=== PATIENT | female | born 1965 | race Caucasian/White ===

== ENCOUNTER → 2016-05-24 | Day surgery (SDC) | payer BC ==
[2016-05-18 13:34] VITALS: Ht 160 cm; Wt 58.2 kg
[~2016-05-24] VITALS: Ht 160 cm; Wt 58.2 kg
[~2016-05-24] MED LIST: FEXO1TAB46 PO; LIDOCAINE HCL 2% 2 ML VIAL (20MG/ML) ONE; MIDAZOLAM HCL 1 MG/ML 2ML VIAL ONE; MULTTAB58 PO; ONDANSETRON INJ 2 MG/ML 2 ML VIAL ONE; PROPOFOL IV EMULSION 10 MG/ML 20 ML VIAL IV ONE; RANI150T3 PO; SODIUM CHLORIDE 0.9% 500ML 500 ML IV ONE
[2016-05-24 14:29] VITALS: TEMP 36.5
--- NOTE | 2016-05-24 15:05 | Endo History and Physical ---
History & Physical Date of Service: May 24, 2016. Chief Complaint: Screening, Family history of colon polyps Referring Physician: Adarsh Ma History of Present Illness 51 yo CF who presents for colonoscopy secondary to family history of colon polyps. Past Surgical History Hx Cardiac Surgery: No Hx Internal Defibrillator: No Hx Pacemaker: No Hx Abdominal Surgery: Yes (TUBAL LIGATION, EZIO) Hx of Implantable Prosthesis: No Hx Post-Op Nausea and Vomiting: Yes Hx Cancer Surgery: No Hx Thoracic Surgery: No Hx Orthopedic: No Hx Urinary Tract Surgery: No Family History Polyp Social History Smoking Status: Never Smoker Hx Substance Use: No Hx Alcohol Use: No Allergies Coded Allergies: Nickel (Verified Allergy, Unknown, RASH, 05/18/16) Sulfa Drugs (Verified Allergy, Unknown, BODY WIDE RASH, 05/18/16) Meperidine (Verified Adverse Reaction, Unknown, nausea, 05/18/16) Current Medications Reported Home Medications Medications Dose Route/Sig Max Daily Dose Days Date Category Zantac (Ranitidine HCl) 150 Mg Tab 150 Mg PO QAM 04/21/14 Reported Multivitamin (Multiple Vitamin) 1 Tab Tab 1 Tab PO QAM 02/07/12 Reported Soledad (Fexofenadine Hcl) 180 Mg Tab 180 Mg PO QAM 02/07/12 Reported Vital Signs Weight (Kilograms): 58.18 Height (Feet): 5 Height (Inches): 3 Date Time Temp Pulse Resp B/P Pulse Ox O2 Delivery O2 Flow Rate FiO2 05/24/16 14:29 36.5 74 20 128/68 97 Room Air Physical Exam General Appearance: WD/WN, no apparent distress Respiratory/Chest: Auscultation: breath sounds normal Cardiovascular: Heart Auscultation: RRR Abdomen: Bowel Sounds: normal Inspection & Palpation: soft, non-distended, no tenderness, guarding & rebound Assessment and Plan Assessment: 51 yo CF who presents for colonoscopy secondary to family history of colon polyps. Plan: Proceed with colonoscopy.
--- NOTE | 2016-05-24 15:24 | Discharge Instructions ---
Endoscopy Patient Instructions Date / Procedure(s) Performed May 24, 2016. Colonoscopy Allergy Information Coded Allergies: Nickel (Verified Allergy, Unknown, RASH, 05/18/16) Sulfa Drugs (Verified Allergy, Unknown, BODY WIDE RASH, 05/18/16) Meperidine (Verified Adverse Reaction, Unknown, nausea, 05/18/16) Discharge Date / Findings May 24, 2016. Colon polyps Diverticulosis Internal hemorrhoids Medication Instructions OK to resume all medications today as prescribed. Reported Home Medications Medications Dose Route/Sig Max Daily Dose Days Date Category Zantac (Ranitidine HCl) 150 Mg Tab 150 Mg PO QAM 04/21/14 Reported Multivitamin (Multiple Vitamin) 1 Tab Tab 1 Tab PO QAM 02/07/12 Reported Soledad (Fexofenadine Hcl) 180 Mg Tab 180 Mg PO QAM 02/07/12 Reported Provider Instructions Activity Restrictions - No exercising or heavy lifting for 24 hours. - Do not drink alcohol the day of the procedure. - Do not drive a car or operate machinery until the day after the procedure. - Do not make any important decisions or sign important papers in 24 hours after the procedure. Following Day: - Return to full activity which may include returning to work/school. Diet Start your diet with liquids and light foods (jello, soup, juice, toast). Then eat your usual diet if not nauseated. Treatment For Common After Affects For mild abdominal pain, bloating, or excessive gas: - Rest - Eat lightly - Lie on right side Follow-Up Information Follow-up with Adarsh Ma as scheduled Anesthesia Information What You Should Know You have had a procedure that required some medicine to reduce anxiety and discomfort. This treatment is called moderate sedation. After receiving the treatment, you may be sleepy, but you will be able to breathe on your own. The effects of the treatment may last for several hours. Follow these instructions along with Activity/Diet recommendations noted above: * Do NOT do anything where dizziness or clumsiness would be dangerous. * Rest quietly at home today, then you can be up and about tomorrow. * Have a responsible person stay with you the rest of today. * You may have had an I.V. today. If so, you may take the dressing off later today. Recommendations Call your doctor if: * Trouble breathing * Continuous vomiting for more than 24 hours * Temperature above 101 degrees * Severe abdominal pain or bloating * Pain not relieved by pain medicine ordered * There is increased drainage or redness from any incision * A large amount of rectal bleeding greater than 2-3 tablespoons. (If you had a polyp/s removed or have hemorrhoids, a small amount of blood - from the rectum is to be expected.) * You have any unanswered questions or concerns. IN THE EVENT OF A SERIOUS EMERGENCY, GO TO THE NEAREST EMERGENCY ROOM Your discharge instructions were prepared by provider Wilber Tompkins. Patient Instructions Signature Page Rebecca Payne Patient (or Guardian) Signature/Date: I have read and understand the instructions given to me by my caregivers. Caregiver/RN/Doctor Signature/Date: The above-named patient and/or guardian has received patient instructions on this date. + Original Patient Signature Page (only) stays with chart. Please make copy for patient.
--- NOTE | 2016-05-24 15:49 | Anesthesiology Progress Note ---
Anesthesia Post Op Note Date & Time May 24, 2016 at 15:49 Vital Signs Pain Intensity: 0 Vital Signs Past 12 Hours Date Time Temp Pulse Resp B/P Pulse Ox O2 Delivery O2 Flow Rate FiO2 05/24/16 15:30 88 20 106/57 98 Room Air 05/24/16 14:29 36.5 74 20 128/68 97 Room Air Notes Mental Status: alert / awake / arousable, participated in evaluation Pt Amnestic to Procedure: Yes Nausea / Vomiting: adequately controlled Pain: adequately controlled Airway Patency, RR, SpO2: stable & adequate BP & HR: stable & adequate Hydration State: stable & adequate Anesthetic Complications: no major complications apparent
[2016-05-24 16:01] VITALS: BP 118/72; PULSE 71; O2SAT 100
--- NOTE | 2016-05-25 00:46 | GI REPORT ---
Procedure Date: 05/24/2016 2:58 PM Procedure: Colonoscopy Indications: Family history of colonic polyps in a first-degree relative Medicines: Monitored Anesthesia Care Complications: No immediate complications. Estimated Blood Loss: Estimated blood loss: none. Procedure: Pre-Anesthesia Assessment: - Prior to the procedure, a History and Physical was performed, and patient medications and allergies were reviewed. The patient's tolerance of previous anesthesia was also reviewed. The risks and benefits of the procedure and the sedation options and risks were discussed with the patient. All questions were answered, and informed consent was obtained. Prior Anticoagulants: The patient has taken no previous anticoagulant or antiplatelet agents. ASA Grade Assessment: II - A patient with mild systemic disease. After reviewing the risks and benefits, the patient was deemed in satisfactory condition to undergo the procedure. After I obtained informed consent, the scope was passed under direct vision. Throughout the procedure, the patient's blood pressure, pulse, and oxygen saturations were monitored continuously. The Scope was introduced through the anus and advanced to the terminal ileum. The colonoscopy was performed without difficulty. The patient tolerated the procedure well. The quality of the bowel preparation was good. The terminal ileum, ileocecal valve, appendiceal orifice, and rectum were photographed. Findings: Two sessile polyps were found in the ascending colon. The polyps were 5 to 8 mm in size. These polyps were removed with a hot snare. Resection and retrieval were complete. Multiple small-mouthed diverticula were found in the sigmoid colon. Non-bleeding internal hemorrhoids were found during retroflexion. The hemorrhoids were small. Impression: - Two 5 to 8 mm polyps in the ascending colon, removed with a hot snare. Resected and retrieved. - Diverticulosis in the sigmoid colon. - Non-bleeding internal hemorrhoids. Recommendation: - Resume previous diet. - Continue present medications. - Repeat colonoscopy for surveillance based on pathology results. - Return to primary care physician as previously scheduled. Wilber Tompkins, DO 05/24/2016 3:31:14 PM This report has been signed electronically. Note Initiated On: 05/24/2016 2:58 PM I attest to the content of the Intraoperative Record and orders documented therein, exceptions below
== END | disposition home or self-care (01) ==
LOC: C.GI 13:59
PROVIDERS: ATTEND Internal Medicine
DX: Z12.11 Encounter for screening for malignant neoplasm of colon (principal); Z80.0 Family history of malignant neoplasm of digestive organs; D12.2 Benign neoplasm of ascending colon; K57.30 Diverticulosis of large intestine without perforation or abscess without bleeding; K64.8 Other hemorrhoids; Z98.51 Tubal ligation status; Z88.2 Allergy status to sulfonamides

== ENCOUNTER → 2016-08-27 | Outpatient (CLI) | payer BC ==
[~2016-08-27] MED LIST changes: -LIDOCAINE HCL 2% 2 ML VIAL (20MG/ML) ONE; -MIDAZOLAM HCL 1 MG/ML 2ML VIAL ONE; -ONDANSETRON INJ 2 MG/ML 2 ML VIAL ONE; -PROPOFOL IV EMULSION 10 MG/ML 20 ML VIAL IV ONE; -SODIUM CHLORIDE 0.9% 500ML 500 ML IV ONE
== END | disposition home or self-care (01) ==
LOC: C.PAPS 10:11
PROVIDERS: ATTEND Obstetrics & Gynecology
DX: Z01.419 Encounter for gynecological examination (general) (routine) without abnormal findings (principal)

== ENCOUNTER → 2016-10-02 | Outpatient (CLI) | payer BC ==
--- NOTE | 2016-10-03 07:39 | MAMMOGRAPHY REPORT ---
BILATERAL DIGITAL SCREENING MAMMOGRAM TOMOSYNTHESIS WITH CAD: 10/02/2016 CLINICAL HISTORY: Routine screening. TECHNIQUE: Breast tomosynthesis in addition to standard 2D mammography was performed. Current study was also evaluated with a Computer Aided Detection (CAD) system. COMPARISON: Comparison is made to exams dated: 10/18/2015 mammogram, 10/13/2014 mammogram, 10/12/2013 m ammogram, 10/09/2012 mammogram, 10/07/2012 mammogram, and 10/01/2011 mammogram - [facility] nter. BREAST COMPOSITION: The tissue of both breasts is heterogeneously dense, which may obscure small mas ses. FINDINGS: The parenchymal pattern is similar to prior exams. There are a few scattered and loosely grouped punctate benign-appearing microcalcifications in the breasts. No developing mass, architectu ral distortion or cluster of suspicious microcalcifications is seen. IMPRESSION: ACR BI-RADS CATEGORY 2: BENIGN There is no mammographic evidence of malignancy. A 1 year screening mammogram is recommended. The pa tient will receive written notification of the results. Approximately 10% of breast cancers are not detected with mammography. A negative mammographic report should not delay biopsy if a clinically suggestive mass is present. Reyna Owen M.D. ay/:10/02/2016 16:06:26 Wrapper Layer: Mirtha SANCHEZ(Trey)(M), [facility] letter sent: Normal 1/2 BI-RADS Code: ACR BI-RADS Category 2: Benign
== END | disposition home or self-care (01) ==
LOC: C.MAMM 14:55
PROVIDERS: ATTEND Obstetrics & Gynecology
DX: Z12.31 Encounter for screening mammogram for malignant neoplasm of breast (principal)

== ENCOUNTER → 2016-11-30 | Outpatient (CLI) | payer BC ==
[2016-11-30 12:15] LABS: BASO % 0.5 %; BASO ABS # 0.03 K/uL (0-0.2); COMPLETE YES; EOS % 2.6 %; HEMATOCRIT 40.4 % (37-47); IG% 0.5 %; MEAN CELL VOLUME 88.2 fL (80-100); MEAN CORPUSCULAR HEMOGLOBIN 29.5 pg (25-34); MEAN CORPUSCULAR HGB CONC 33.4 g/dl (32-36); MEAN PLATELET VOLUME 9.7 fL (7.4-10.4); MONO % 9.3 %; NEUT % 61.1 %; PLATELET COUNT 229 K/uL (130-400); RED BLOOD COUNT 4.58 M/uL (4.2-5.4); WHITE BLOOD COUNT 6.55 K/uL (4.8-10.8)
[2016-11-30 12:58] LABS: BLOOD UREA NITROGEN 14 mg/dl (7-18); BUN/CREATININE RATIO 19.1 (10-20); CALCIUM 9.5 mg/dl (8.5-10.1); CARBON DIOXIDE 30 mmol/L (21-32); CHLORIDE 105 mmol/L (98-107); CHOLESTEROL 192 mg/dl (0-200); CREATININE 0.74 mg/dl (0.60-1.20); GLUCOSE 88 mg/dl (70-99); POTASSIUM 4.5 mmol/L (3.5-5.1); SODIUM 141 mmol/L (136-145); TRIGLYCERIDES 84 mg/dl (0-150); VERY LOW DENSITY LIPOPROT CALC 17 mg/dl
[2016-11-30 13:01] LABS: CHOLESTEROL/HDL RATIO 3.3; HDL CHOLESTEROL 58 mg/dl; LDL CHOLESTEROL CALCULATED 117 mg/dl
== END | disposition home or self-care (01) ==
LOC: C.LABBFT 08:15
PROVIDERS: ATTEND Internal Medicine
DX: E78.5 Hyperlipidemia, unspecified (principal); K21.9 Gastro-esophageal reflux disease without esophagitis

== ENCOUNTER 2019-04-10 18:08 | Observation (INO) ==
[2019-04-10] MEDS ORDERED: ASPIRIN CHEW 324 MG PO STA (18:27)
[2019-04-10 18:44] LABS: Basophils # (auto) 0.03 K/uL (0-0.2); Basophils % (auto) 0.4 %; Eosinophils # (auto) 0.17 K/uL (0-0.5); Eosinophils % (auto) 2.4 %; Hematocrit (blood only) 39.3 % (37-47); Hemoglobin 13.1 g/dL (12.0-16.0); Immature Granulocytes # (auto) 0.01 K/uL (0.00-0.02); Immature Granulocytes % (auto) 0.1 %; Lymphocytes # (auto) 1.99 K/uL (1.2-3.4); Lymphocytes % (auto) 28.4 %; Mean Corpuscular Hemoglobin 28.9 pg (25-34); Mean Corpuscular Hgb Conc 33.3 g/dL (32-36); Mean Corpuscular Volume 86.8 fL (80-100); Mean Platelet Volume 9.3 fL (7.4-10.4); Monocytes # (auto) 0.54 K/uL (0.11-0.59); Monocytes % (auto) 7.7 %; Neutrophils # (auto) 4.26 K/uL (1.4-6.5); Platelet Count 215 K/uL (130-400); RDW Coefficient of Variation 13.3 % (11.5-14.5); RDW Standard Deviation 42.3 fL (36.4-46.3); Red Blood Count 4.53 M/uL (4.2-5.4)
[2019-04-10 19:00] LABS: D Dimer < 190 ug/L FEU (0-500); Partial Thromboplastin Time 26.8 Seconds (21.0-31.0); Prothrombin Time 10.1 Seconds (9.0-12.0)
[2019-04-10 19:03] LABS: Alanine Aminotransferase 33 U/L (12-78); Albumin Level 4.1 gm/dl (3.4-5.0); Aspartate Aminotransferase 16 U/L (15-37); BUN Creatinine Ratio 20.1 (10-20); Blood Urea Nitrogen 14 mg/dl (7-18); Calcium 8.9 mg/dl (8.5-10.1); Carbon Dioxide 28 mmol/L (21-32); Chloride 108 mmol/L (98-107); Creatinine Clr Calc Pharmacy 76.2 ml/min; Est GFR (African American) 113.6; Glucose 93 mg/dl (70-99); Lipase 236 U/L (73-393); Potassium 3.8 mmol/L (3.5-5.1); Sodium 139 mmol/L (136-145)
[2019-04-10 19:08] LABS: Albumin Globulin Ratio 1.2 (0.9-2); Alkaline Phosphatase 86 U/L (45-117); Bilirubin,Total 0.3 mg/dl (0.2-1); Globulin 3.3 gm/dl (2.5-4.0); Total Protein 7.4 gm/dl (6.4-8.2); Troponin I < 0.015 ng/ml (0-0.045)
--- NOTE | 2019-04-10 19:15 | XRay Report ---
XR chest 1V portable CLINICAL HISTORY: 53 years-old Female presenting with Chest Pain. TECHNIQUE: Portable upright AP view of the chest was obtained. COMPARISON: None. FINDINGS: Cardiomediastinal silhouette normal. No focal opacity. No large effusion or pneumothorax. Osseous str uctures normal. Upper abdomen normal. IMPRESSION: 1. No acute cardiopulmonary disease. ACT 112: Negative or not required by law. Electronically signed by: Tristen Paez M.D. 04/10/2019 7:14 PM
--- NOTE | 2019-04-10 20:02 | Emergency Department Note ---
Entered by Nohemy Fonseca acting as a scribe for David Ruiz DO History of Present Illness General Chief complaint: Chest Pain Stated complaint: CHEST PAIN, WEEKNESS IN LIMBS Time Seen by Provider: 04/10/19 18:20 Source: patient History of Present Illness Provider complaint: chest pain Onset (ago): hour(s) 10 Location: chest and left Radiation: non-radiation Pain Consistency: + intermittent Maximum Pain Intensity: 5 Quality: + stabbing and + sharp Exacerbated By: + movement Associated symptoms: + shortness of breath and + other (-leg swelling, +palpitation) The patient is a 53 year old female who presents to the Emergency Room with complaints of intermittent chest pain for the past 10 hours. The patient notes that the pain is located on her left side and is a sharp, stabbing pain. The patient notes that moving worsens her pain. She notes that she has mild shortness of breath. She denies any leg swelling. She mentions that that on , she experienced palpitations which lasted all day. She notes that she has occasional chronic palpitations which she ignores. She denies any alcohol or tobacco use. Home Medications Home Medications Medication Instructions Recorded Confirmed Type fexofenadine 180 mg PO DAILY 04/10/19 04/10/19 History multivitamin 1 tab PO DAILY 04/10/19 04/10/19 History Allergies Allergy/AdvReac Type Severity Reaction Status Date / Time nickel Allergy Unknown Rash Verified 04/10/19 18:57 Sulfa (Sulfonamide Allergy Unknown BODY WIDE Verified 04/10/19 18:57 Antibiotics) RASH meperidine AdvReac Unknown Nausea Verified 04/10/19 18:57 Past Med/Surg History Medical History No significant past medical history Social History Feels Safe at Home: Yes Smoking Status: Never smoker Review of Systems See HPI for pertinent positives & negatives. and A total of 10 systems reviewed and were otherwise negative Physical Exam Vital Signs Vital Signs - 24 hr 04/10/19 18:09 04/10/19 18:29 04/10/19 18:30 Temperature 37 C Temperature Source Oral Pulse Rate 80 70 73 Respiratory Rate 18 21 20 Blood Pressure 167/78 H Blood Pressure Mean 107 Pulse Oximetry 99 Oxygen Delivery Method Room Air Room Air Room Air Sepsis Recent Fever Within 48 Hours No Sepsis New/Unexplained Change in Mental Status No Sepsis Action Taken by Nursing No Action Required 04/10/19 18:39 04/10/19 18:40 04/10/19 18:50 Temperature Temperature Source Pulse Rate 75 75 Respiratory Rate 22 14 Blood Pressure Blood Pressure Mean Pulse Oximetry 97 97 Oxygen Delivery Method Room Air Room Air Room Air Sepsis Recent Fever Within 48 Hours Sepsis New/Unexplained Change in Mental Status Sepsis Action Taken by Nursing 04/10/19 19:00 04/10/19 19:10 04/10/19 19:20 Temperature Temperature Source Pulse Rate 69 65 72 Respiratory Rate 16 17 15 Blood Pressure Blood Pressure Mean Pulse Oximetry Oxygen Delivery Method Room Air Room Air Room Air Sepsis Recent Fever Within 48 Hours Sepsis New/Unexplained Change in Mental Status Sepsis Action Taken by Nursing 04/10/19 19:30 Temperature Temperature Source Pulse Rate 70 Respiratory Rate 22 Blood Pressure Blood Pressure Mean Pulse Oximetry Oxygen Delivery Method Room Air Sepsis Recent Fever Within 48 Hours Sepsis New/Unexplained Change in Mental Status Sepsis Action Taken by Nursing GENERAL: Patient is awake, alert, and in no acute distress.Patient is resting comfortably and showing no signs of anxiety EYES: The conjunctivae are clear. The pupils are round and reactive. EARS, NOSE, MOUTH AND THROAT: The nose is without any evidence of any deformity. Mucous membranes are moist.Tongue is midline NECK: The neck is nontender and supple. RESPIRATORY: Normal respiratory effort is noted. There is no evidence of wheezing rhonchi or rales to auscultation. CARDIOVASCULAR: Regular rate and rhythm noted. There no murmurs rubs or gallops normal S1 normal S2 GASTROINTESTINAL: The abdomen is soft. Bowel sounds are present in all quadrants. Abdomen is nontender. MUSCULOSKELETAL/EXTREMITIES: There is no evidence of gross deformity. Full range of motion is noted in the hips and shoulders. SKIN: There is no obvious evidence of any rash. There are no petechiae, pallor or cyanosis noted. NEUROLOGIC: Patient is awake alert and oriented x3. Strength is symmetric. Patellar reflexes are 2+ bilaterally. Course Course 1821: The patient was evaluated in room A12A, and a complete history and physical examination were performed. 1945: I reviewed the patient's case with Dr. Cervantes- [facility] Hospitalist. He will evaluate the patient for further management. Administered Medications Discontinued Medications Aspirin (Aspirin) 324 mg PO NOW STA Stop: 04/10/19 18:28 Last Admin: 04/10/19 18:39 Dose: 324 mg Documented by: [id number] Medical Decision Making Differential Diagnosis Differential diagnosis: Etiologies such as cardiac ischemia, aortic dissection, pulmonary embolism, pneumonia, pneumothorax, musculoskeletal, infections, pericarditis, myocarditis, esophageal rupture, gastrointestinal, as well as others were entertained. Medical Records Attestation: I reviewed the patient's medical records. Home Medications Current Medication List: was personally reviewed by me Laboratory Data Attestation: I reviewed the patient's lab results. Result diagrams: 04/10/19 18:32 04/10/19 18:32 Lab Results 04/10/19 04/10/19 04/10/19 Range/Units 18:32 18:32 18:32 WBC 7.00 (4.8-10.8) K/uL RBC 4.53 (4.2-5.4) M/uL Hgb 13.1 (12.0-16.0) g/dL Hct 39.3 (37-47) % MCV 86.8 (80-100) fL MCH 28.9 (25-34) pg MCHC 33.3 (32-36) g/dL RDW Std Deviation 42.3 (36.4-46.3) fL RDW Coeff of Jenna 13.3 (11.5-14.5) % Plt Count 215 (130-400) K/uL MPV 9.3 (7.4-10.4) fL Immature Gran % (Auto) 0.1 % Neut % (Auto) 61.0 % Lymph % (Auto) 28.4 % Owsley % (Auto) 7.7 % Eos % (Auto) 2.4 % Baso % (Auto) 0.4 % Immature Gran # (Auto) 0.01 (0.00-0.02) K/uL Neut # (Auto) 4.26 (1.4-6.5) K/uL Lymph # (Auto) 1.99 (1.2-3.4) K/uL Owsley # (Auto) 0.54 (0.11-0.59) K/uL Eos # (Auto) 0.17 (0-0.5) K/uL Baso # (Auto) 0.03 (0-0.2) K/uL PT 10.1 (9.0-12.0) Seconds INR 1.0 (0.9-1.1) APTT 26.8 (21.0-31.0) Seconds PTT Ratio 1.0 D-Dimer < 190 (0-500) ug/L FEU Sodium 139 (136-145) mmol/L Potassium 3.8 (3.5-5.1) mmol/L Chloride 108 H (98-107) mmol/L Carbon Dioxide 28 (21-32) mmol/L Anion Gap 3.0 (3-11) BUN 14 (7-18) mg/dl Creatinine 0.69 (0.6-1.2) mg/dl Est Cr Clr Drug Dosing 76.2 ml/min Est GFR ( Amer) 113.6 Est GFR (Non-Af Amer) 98.0 BUN/Creatinine Ratio 20.1 H (10-20) Glucose 93 (70-99) mg/dl Calcium 8.9 (8.5-10.1) mg/dl Total Bilirubin 0.3 (0.2-1) mg/dl AST 16 (15-37) U/L ALT 33 (12-78) U/L Alkaline Phosphatase 86 (45-117) U/L Troponin I < 0.015 (0-0.045) ng/ml Total Protein 7.4 (6.4-8.2) gm/dl Albumin 4.1 (3.4-5.0) gm/dl Globulin 3.3 (2.5-4.0) gm/dl Albumin/Globulin Ratio 1.2 (0.9-2) Lipase 236 (73-393) U/L Imaging Data Radiologist's Impression: Radiology results as stated below per my review and the radiologist's interpretation: XR chest 1V portable CLINICAL HISTORY: 53 years-old Female presenting with Chest Pain. TECHNIQUE: Portable upright AP view of the chest was obtained. COMPARISON: None. FINDINGS: Cardiomediastinal silhouette normal. No focal opacity. No large effusion or pneumothorax. Osseous structures normal. Upper abdomen normal. IMPRESSION: 1. No acute cardiopulmonary disease. ACT 112: Negative or not required by law. Electronically signed by: Tristen Paez M.D. 04/10/2019 7:14 PM ECG Data Attestation: I personally reviewed and interpreted this ECG as follows: Indication: + chest pain Rate (beats per minute): 73 Rhythm: + normal sinus ECG ST segments: + Nonspecific ST abnormalities (lateral ) ECG Findings: no PACs and no PVCs Comparison ECG Date: from (04/21/14) Change: no significant change Blood Pressure Blood Pressure Findings: Elevated blood pressure Blood Pressure Disposition: further management by hospitalist MDM Narrative The patient is a 53-year-old female who presented to the emergency department for an evaluation of chest discomfort. The patient describes intermittent episodes of sharp left-sided chest pain. The pain is not completely reproducible and she states it was sometimes worsened with ambulation but not necessarily exertion. I discussed the patient's laboratory and radiographic studies with her. I also discussed the limitations of the emergency department work-up for chest pain with her. Ultimately I do feel the patient's EKG was abnormal and she may require further inpatient work-up of her chest discomfort. The patient was treated with aspirin. I discussed her case with the on-call [facility] hospitalist. They have agreed to evaluate the patient in the emergency department for further management and disposition. Impression & Plan Chest pain, Abnormal EKG Discharge Plan Visit Data Chief Complaint: Chest Pain Stated Complaint: CHEST PAIN, WEEKNESS IN LIMBS ED Provider: David Ruiz Discharge Problem: Chest pain, Abnormal EKG Patient Disposition: Being Evaluated by Hospitalist Forms Stand Alone Forms: Call Back Authorization, My [facility] [place] Prescriptions Prescriptions: No Action multivitamin Tablet 1 tab PO DAILY RF: 0 fexofenadine 180 mg Tablet 180 mg PO DAILY RF: 0 Referrals Referrals: Charli Ma MD [Primary Care Provider] - Discharge Problem: Chest pain Qualifiers: Chest pain type: unspecified Qualified Code(s): R07.9 - Chest pain, unspecified The scribe's documentation has been prepared under my direction and personally reviewed by me in its entirety. I confirm that the note above accurately reflects all work, treatment, procedures, and medical decision making performed by me.
--- NOTE | 2019-04-10 20:19 | History & Physical Report ---
Date of Service April 10, 2019 Assessment & Plan (1) Chest pain: Ms. Rebecca Payne is a very pleasant 53 year old woman with PMH significant for only allergies who presents with a several day history of sharp nonradiating chest pain located under left breast exacerbated by movement. Chest Pain Sharp pain exacerbated by movement whether just up and to the bathroom or walking up flights of stairs or the [facility] in [place], and minimal shortness of breath Vitals stable, no tachycardia, Initial troponin negative, D dimer negative, lipase negative, Chest XR unremarkable Lack of risk factors for heart disease, both parents have had CAD but not until their mid sixties, patient without HTN, HLD, smoking history, obesity, nor any personal history of any vascular conditions ECG showing some possible lateral ST depression Heart score of 2, low risk for major adverse cardiac event ~1% Will admit to MED/SURG with telemetry, continue serial troponins, consult cardiology Patient normotensive now, but hypertensive at time of my exam, will give hydrala zine PO PRN for systolic >160 DVT PPx: Lovenox F/E/N: regular Diet Dispo: Observation overnight for cardiac stress Echo in the morning, if all negative hopefully home tomorrow (2) Abnormal EKG: History of Present Illness Chief Complaint: Chest Pain Primary Care Provider: Adarsh Ma MD Ms. Rebecca Payne is a 53 year old woman with a past medical history significant for allergies for which she takes vish. Saturday Evening ended up having some heart palpitations that started around six thirty seven and lasted til about 8 am the next morning. Twinges of sharp pain under left breast that lasted less than a second. Today around 9 a she started to have it and it was stronger and not going away. She thought it might be a pulled muscle. Took an aleve which seemed to calm down the pain until about 4-5 hours later it came back. Lasted for over an hour, made it difficult to concentrate on her work. Pain is located left breast area just left of sternum comes and goes. Lasts for as long as an hour. It is very much exacerbated by moving. No recent injury. Not having it currently. Getting up and going to restroom here in ED caused the pain. Legs and arms felt a little rubbery earlier today, but not really stopping her from doing anything, patient also endorses minimal shortness of breath but only with the sharp pains. No nausea or vomiting, no sweats, no presyncope/syncope. Patient uses stairs all the time, was able to get up stairs without too much difficulty today, was able to climb a hill to her car [place] the [place]. Non smoker, non drinker, to José Miguel, has 3 daughters and 2 grandchildren with one more on the way. Allergies Allergy/AdvReac Type Severity Reaction Status Date / Time nickel Allergy Unknown Rash Verified 04/10/19 18:57 Sulfa (Sulfonamide Allergy Unknown BODY WIDE Verified 04/10/19 18:57 Antibiotics) RASH meperidine AdvReac Unknown Nausea Verified 04/10/19 18:57 Home Medications Home Medications Medication Instructions Recorded Confirmed Type fexofenadine 180 mg PO DAILY 04/10/19 04/10/19 History multivitamin 1 tab PO DAILY 04/10/19 04/10/19 History Past Med/Surg History Medical History No significant past medical history Family History (Updated 04/10/19 @ 21:13 by Tree Otero MD) Mother Coronary heart disease Father Coronary heart disease Mid to late sixties Daughter Epilepsy SVT (supraventricular tachycardia) Social History (Updated 04/10/19 @ 21:15 by Tree Otero MD) Preferred Language: Greenlandic Communication Ability: Effective Button Bradder Required: No Beliefs That Will Affect Care: None marital status: marital status details: with several major health problems Current Living Situation: Spouse current occupational status: employed Other Information That Helps Us Care for You: No Feels Safe at Home: Yes Safety Concerns: Feels Safe At This Time Smoking Status: Never smoker Hx Alcohol Use: No Hx Substance Use: No Review of Systems Constitutional: + fatigue; no fever and no chills Eyes: no problem reported Ear, Nose, Mouth, Throat: no ear pain, no nasal congestion and no sore throat Respiratory: no cough, no pain on inspiration and no wheezing Cardiovascular: Additional Comments: As above Gastrointestinal: no abdominal pain, no nausea, no vomiting, no constipation and no diarrhea/loose stools Genitourinary: no dysuria Neurologic: no problem reported Physical Exam Constitutional: well developed and well nourished; no acute distress Eyes: PERRL, conjunctivae normal, anicteric sclerae ENMT: external ear and nose normal, oropharynx normal Respiratory: normal respiratory effort, lungs clear to auscultation Cardiovascular: Rate/Rhythm: regular rate and regular rhythm Heart Sounds: normal S1 and normal S2; no click, no gallop, no murmur and no cardiac rub Vessels: no carotid bruit Extremities: no calf tenderness Chest (Breasts): Chest: normal inspection of chest (No reproducible tenderness to palpation at location of her pain) Gastrointestinal (Abdomen): normal bowel sounds, soft, nontender, no hepatosplenomegaly Skin: no rashes, warm and dry Neurologic: patellar DTR's 2+ bilat, sensation intact Psychiatric: A+Ox3, euthymic affect Results & Data Vital Signs (Past 12 Hours) Vital Signs Temp Pulse Pulse Resp BP BP Pulse Ox 04/10/19 20:05 68 20 170/89 H 04/10/19 19:30 70 22 04/10/19 19:20 72 15 04/10/19 19:10 65 17 04/10/19 19:00 69 16 04/10/19 18:50 75 14 04/10/19 18:40 75 22 97 04/10/19 18:39 97 04/10/19 18:30 73 20 04/10/19 18:29 70 21 04/10/19 18:09 37 C 80 18 167/78 H 99 Supervising Physician Co-Signing Physician Notes Patient was seen and examined by me personally. I reviewed the chart, the orders and discussed the case in detail with Dr. Tree Otero MD . I read this H&P and agree with its contents to entirety. Resident Activity Tracking Resident Involvement: Resident Care Provided Care Provided: Adult Hospital Medicine (1) Chest pain Chest pain type: unspecified Qualified Code(s): R07.9 - Chest pain, unspecified
[2019-04-10] MEDS ORDERED: ACETAMINOPHEN 325 MG TAB PO PRN (22:42)
[2019-04-10] MEDS ORDERED: ALUMINUM/MAGNESIUM SUSP 30 ML UDC PO PRN (22:42)
[2019-04-10] MEDS ORDERED: HydrALAZINE 10 MG TAB PO PRN (22:42)
--- NOTE | 2019-04-11 03:09 | Billing Data ---
Date of Service April 10, 2019 Coding Level of Care Code 11927 OBS Care - Level 2
[2019-04-11 03:11] LABS: Basophils # (auto) 0.03 K/uL (0-0.2); Basophils % (auto) 0.4 %; Eosinophils # (auto) 0.19 K/uL (0-0.5); Eosinophils % (auto) 2.6 %; Hematocrit (blood only) 38.5 % (37-47); Immature Granulocytes # (auto) 0.03 K/uL (0.00-0.02); Immature Granulocytes % (auto) 0.4 %; Lymphocytes # (auto) 2.02 K/uL (1.2-3.4); Lymphocytes % (auto) 27.3 %; Mean Corpuscular Hemoglobin 29.5 pg (25-34); Mean Corpuscular Hgb Conc 33.8 g/dL (32-36); Mean Corpuscular Volume 87.3 fL (80-100); Mean Platelet Volume 9.2 fL (7.4-10.4); Monocytes # (auto) 0.77 K/uL (0.11-0.59); Monocytes % (auto) 10.4 %; Neutrophils # (auto) 4.36 K/uL (1.4-6.5); Neutrophils % (auto) 58.9 %; Platelet Count 201 K/uL (130-400); RDW Coefficient of Variation 13.2 % (11.5-14.5); RDW Standard Deviation 42.4 fL (36.4-46.3); Red Blood Count 4.41 M/uL (4.2-5.4)
[2019-04-11 03:29] LABS: Alanine Aminotransferase 31 U/L (12-78); Albumin Level 3.6 gm/dl (3.4-5.0); Aspartate Aminotransferase 14 U/L (15-37); BUN Creatinine Ratio 17.9 (10-20); Bilirubin Direct < 0.1 mg/dl (0-0.2); Blood Urea Nitrogen 13 mg/dl (7-18); Calcium 8.6 mg/dl (8.5-10.1); Carbon Dioxide 30 mmol/L (21-32); Chloride 108 mmol/L (98-107); Creatinine Clr Calc Pharmacy 70.1 ml/min; Est GFR (Non-African American) 89.7; Glucose 105 mg/dl (70-99); Potassium 4.3 mmol/L (3.5-5.1); Sodium 140 mmol/L (136-145)
[2019-04-11 03:34] LABS: Albumin Globulin Ratio 1.1 (0.9-2); Alkaline Phosphatase 79 U/L (45-117); Bilirubin,Total 0.4 mg/dl (0.2-1); Globulin 3.2 gm/dl (2.5-4.0); Total Protein 6.8 gm/dl (6.4-8.2); Troponin I < 0.015 ng/ml (0-0.045)
[2019-04-11] MEDS ORDERED: ENOXAPARIN INJ 40 MG/0.4 ML SYR SQ SCH (08:00)
[2019-04-11] MEDS ORDERED: MULTIVITAMIN TAB PO SCH (09:00)
--- NOTE | 2019-04-11 11:06 | Electrocardiogram Report ---
Test Reason : Blood Pressure : / mmHG Vent. Rate : 073 BPM Atrial Rate : 073 BPM P-R Int : 138 ms QRS Dur : 078 ms QT Int : 394 ms P-R-T Axes : 062 006 048 degrees QTc Int : 434 ms Normal sinus rhythm mild Nonspecific ST abnormality Abnormal ECG When compared with ECG of 21-APR-2014 18:33, No significant change was found Confirmed by Ricky Rubi ([id number]) on 04/11/2019 11:05:54 AM Referred By: REFERRED SELF Confirmed By:Ricky Rubi
--- NOTE | 2019-04-11 12:50 | Discharge Summary ---
Date of Service April 11, 2019 Admission HPI Per Admitting Provider Ms. Rebecca Payne is a 53 year old woman with a past medical history significant for allergies for which she takes vish. Saturday Evening ended up having some heart palpitations that started around six thirty seven and lasted til about 8 am the next morning. Twinges of sharp pain under left breast that lasted less than a second. Today around 9 a she started to have it and it was stronger and not going away. She thought it might be a pulled muscle. Took an aleve which seemed to calm down the pain until about 4-5 hours later it came back. Lasted for over an hour, made it difficult to concentrate on her work. Pain is located left breast area just left of sternum comes and goes. Lasts for as long as an hour. It is very much exacerbated by moving. No recent injury. Not having it currently. Getting up and going to restroom here in ED caused the pain. Legs and arms felt a little rubbery earlier today, but not really stopping her from doing anything, patient also endorses minimal shortness of breath but only with the sharp pains. No nausea or vomiting, no sweats, no presyncope/syncope. Patient uses stairs all the time, was able to get up stairs without too much difficulty today, was able to climb a hill to her car from the bottom of the [employer] in [place] to the top. Non smoker, non drinker, to José Miguel, has 3 daughters and 2 grandchildren with one more on the way. Admission Exam Per Admitting Provider Constitutional: well developed and well nourished; no acute distress Eyes: PERRL, conjunctivae normal, anicteric sclerae ENMT: external ear and nose normal, oropharynx normal Respiratory: normal respiratory effort, lungs clear to auscultation Cardiovascular: Rate/Rhythm: regular rate and regular rhythm Heart Sounds: normal S1 and normal S2; no click, no gallop, no murmur and no cardiac rub Vessels: no carotid bruit Extremities: no calf tenderness Chest (Breasts): Chest: normal inspection of chest (No reproducible tenderness to palpation at location of her pain) Gastrointestinal (Abdomen): normal bowel sounds, soft, nontender, no hepatosplenomegaly Skin: no rashes, warm and dry Neurologic: patellar DTR's 2+ bilat, sensation intact Psychiatric: A+Ox3, euthymic affect Principal Diagnosis musculoskeletal chest pain vs. stress reaction Discharge Exam Constitutional WD/WN, vitals as above Respiratory normal respiratory effort, lungs clear to auscultation Cardiovascular RRR, no murmur, no edema Gastrointestinal (Abdomen) normal bowel sounds, soft, nontender, no hepatosplenomegaly Skin no rashes, warm and dry Psychiatric A+Ox3, euthymic affect Discharge Data Allergies Allergy/AdvReac Type Severity Reaction Status Date / Time nickel Allergy Unknown Rash Verified 04/10/19 18:57 Sulfa (Sulfonamide Allergy Unknown BODY WIDE Verified 04/10/19 18:57 Antibiotics) RASH meperidine AdvReac Unknown Nausea Verified 04/10/19 18:57 Consultations 04/10/19 19:59 ED Decision to Admit Stat 04/11/19 10:00 Consult SHAHEEDG cotton wringer Routine Hospital Course (1) Chest pain: Ms. Rebecca Payne is a very pleasant 53 year old woman with PMH significant for only allergies who presents with a several day history of sharp nonradiating chest pain located under left breast exacerbated by movement. Chest Pain - Pt admitted to Observation for atypical chest pain with family history of CAD. - Sharp pain exacerbated by movement whether just up and to the bathroom or walking up flights of stairs or the [employer] hill in [place]. - Vitals stable, no tachycardia, D dimer negative, lipase negative, Chest XR unremarkable. - Pt's HEART score here is 2 and pt does not have history of smoking, HTN, HLD, obesity; troponins have trended negative. Pt reports pain intermittent since yesterday morning which if ischemic in nature would likely have caused an elevation in her troponins in the time that has passed since then. - Discussed patient and reviewed EKG with Dr. Rubi; likely lateral minor ST depression is pt's baseline EKG, recommends outpatient stress Echo given negative workup. Elevated blood pressure without the diagnosis of HTN - Pt hypertensive in ED, however normotensive as of early this AM. Would recommend outpatient PCP follow up. Nurse navigator to call regarding scheduling stress Echo and PCP follow up. (2) Abnormal EKG: Total Time Total Time Spent Total Time Spent (In Minutes): see attending attestation Discharge Plan Discharge Items Patient Disposition: Home - Self-Care Reason For Visit: CHEST PAIN Discharge Diagnosis: chest pain Activity: Resume your previous activity Non-emergency contact: Primary Care Provider and Hospitalist Call non-emergency contact if: your symptoms worsen Follow-up/Referrals: Charli Ma MD [Primary Care Provider] - Diet: Regular Addtl Attending Provider Instructions: You were admitted to the hospital for concern for chest pain. Your heart enzymes, chest Xray, and EKG all looked normal and did not suggest any heart attack or infection. We felt comfortable sending you home with the below instructions for follow up. 1) Stress Test: Given your family history of heart disease and the chest pain you were having, while it was not necessary to do the stress test in the hospital we will have one of our nurses call to schedule you for a stress test to be performed sometime next week. The nurse will also help schedule you for a follow up appointment with your primary care doctor. If you do not hear from our nurse it is important that you call your primary care doctor on saturday to discuss your hospitalization and schedule follow up. The pain you experienced was likely musculoskeletal as opposed to heart related. Please follow up on this discomfort with your primary care doctor, who may want to run more tests in the outpatient setting. If you begin to experience crushing chest pain, trouble breathing, high fevers over 100.4, or nausea and vomiting it is important that you call your primary care doctor, and if they are not available to come back to the ER. Pending Studies at Discharge: No Stand-Alone Forms: Call Back Authorization, [facility], Smoking Cessation Medications and DC Order Prescriptions: Continued multivitamin Tablet 1 tab PO DAILY RF: 0 fexofenadine 180 mg Tablet 180 mg PO DAILY RF: 0 Discharge Orders: Discharge Order (Routine); Ordered 04/11/19 Ordered By: Funmi Peace Admission Data Admit Date/Time: 04/10/19 21:03 Attending Provider: Nani Barton Admit Provider: Tree Otero Primary Care Provider: Charli Ma Other Providers: José Luis Cervantes Other Interventions: Discharge Summary Assessment (RN) Last Done: 04/11/19 12:12 DC Date/Time DO NOT enter until pt leaves facility: 04/11/19 12:31 Supervising Physician Co-Signing Physician Notes Resident Physician Supervision Note: I independently interviewed and examined the patient and verified the jimenez history and physical, reviewed labs and image studies, discussed the case with the resident Dr. Peace and agree with the findings and care plan. Resident Activity Tracking Resident Involvement: Resident Care Provided Care Provided: [facility] Medicine
== END 2019-04-11 12:31 | disposition home or self-care (01) ==
LOC: 2W 18:08 → ED 18:08 → SUATTDRO 21:03 → 2W 21:33